=== PATIENT | male | born 1980 | race American Indian/Alaskan Native ===

== ENCOUNTER 2018-07-22 12:38 | Emergency (ER) | payer BC ==
[~2018-07-22] VITALS: Ht 180.3 cm; Wt 129.3 kg
[2018-07-22 12:42] VITALS: TEMP 97.9
[2018-07-22 13:24] LABS: PLATELET COUNT 207 K/uL (142-355)
[2018-07-22 13:32] LABS: POTASSIUM 3.9 mmol/L (3.6-5.2); SODIUM 137 mmol/L (136-145)
[2018-07-22 14:26] VITALS: BP 110/70
== END 2018-07-22 14:26 | disposition home or self-care (01) ==
LOC: ED 12:38
PROVIDERS: Emergency Medicine
DX: R07.89 Other chest pain (principal)
CPT/HCPCS: 36415; 80053; 82550; 82553; 84484; 85027; 93005; 99283

== ENCOUNTER 2020-05-17 05:59 | Outpatient (CLI) | payer BC | END 2020-05-17 19:23 | disposition home or self-care (01) | LOC: CT 05:59 | PROVIDERS: ATTEND Registered Nurse | DX: R19.02 Left upper quadrant abdominal swelling, mass and lump (principal) | CPT/HCPCS: Q9963 ==